=== PATIENT | female | born 1980 | race Caucasian/White ===

== ENCOUNTER 2018-03-31 20:32 | Emergency (ER) | payer OTHER, BC ==
--- NOTE | 2018-03-31 21:05 | PDOC ---
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 Pain and mild swelling at left 3rd MCP. Full ROM of fingers, but has pain when closing fist. S/p tubal ligation. Left hand xray To [facility] for further eval Discharge Disposition - Referrals Referrals: Myranda Kovacs MD [Primary Care Provider] - - Patient Instructions - Post Discharge Activity
[2018-03-31 21:09] VITALS: BP 123/78; PULSE 78; TEMP 98; BMI 23.3
--- NOTE | 2018-03-31 22:07 | PDOC ---
History of Present Illness - General Chief Complaint: Injury Stated Complaint: HAND INJURY /WORK RELATED Time Seen by Provider: 03/31/18 21:05 - History of Present Illness Initial Comments: 37-year-old female presents for evaluation of left third MCP J pain after applying suprapubic pressure in the delivery. 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 No prior problems with that area. No comorbidities. 03/31/18 22:04 Past History - Past Medical History Allergies/Adverse Reactions: Allergies Allergy/AdvReac Type Severity Reaction Status Date / Time No Known Drug Allergies Allergy Verified 03/31/18 21:06 Home Medications: Ambulatory Orders NK [No Known Home Medication] 03/31/18 Anemia: No Asthma: No Cancer: No Cardiac Disorders: Yes (MITRAL/TRICUSPID VALVE PROLAPSE WITH REGURGITATION) CVA: No COPD: No CHF: No Dementia: No Diabetes: No GI Disorders: Yes (DIVERTICULITIS) Disorders: No HTN: No Hypercholesterolemia: No Liver Disease: No Seizures: No Thyroid Disease: No - Surgical History Abdominal Surgery: Yes Appendectomy: No Cardiac Surgery: No Cholecystectomy: No Lung Surgery: No Neurologic Surgery: No Orthopedic Surgery: No - Reproductive History (#): 3 Para: 1 Tubal Ligation: Yes - Suicide/Smoking/Psychosocial Hx Smoking Status: Yes Smoking History: Former smoker Have you smoked in the past 12 months: No Number of Cigarettes Smoked Daily: 1 Information on smoking cessation initiated: No 'Breaking Loose' booklet given: 12/29/13 Hx Alcohol Use: No Drug/Substance Use Hx: No Substance Use Type: None Hx Substance Use Treatment: No Review of Systems - Review of Systems Musculoskeletal: Yes: Joint Pain All Other Systems: Reviewed and Negative *Physical Exam - Vital Signs Last Vital Signs Temp Pulse Resp BP Pulse Ox 98 F 78 16 123/78 03/31/18 21:07 03/31/18 21:07 03/31/18 21:07 03/31/18 21:07 - Physical Exam Comments: Left hand skin color and temperature are normal there is full range of motion. Tenderness about the third MCP joint of the left hand. Tenderness over the dorsum of the MCP joint. Her extensor tendon is working. FDS and FDP P function are preserved not hand. There are no gross sensorimotor deficits or malrotation deformity. Neurovascular intact 03/31/18 22:05 Moderate Sedation - Procedure Monitoring Vital Signs: Vital Signs Temp Pulse Resp BP Pulse Ox 98 F 78 16 123/78 03/31/18 21:07 03/31/18 21:07 03/31/18 21:07 03/31/18 21:07 Medical Decision Making - Medical Decision Making Left hand third MCP J sprain she can donis tape and follow-up with hand surgery for further evaluation and treatment options 03/31/18 22:05 *DC/Admit/Observation/Transfer Diagnosis at time of Disposition: Sprain of hand, left - Discharge Dispostion Disposition: HOME Condition at time of disposition: Stable Decision to Admit order: No - Referrals Referrals: Myranda Kovacs MD [Primary Care Provider] - Flash Brown MD [Staff Physician] - - Patient Instructions Printed Discharge Instructions: Finger Sprain Additional Instructions: Return to the emergency room if your symptoms worsen or go unresolved prior to follow-up with hand surgery. In the meantime he can donis tape the fingers for comfort. Motrin Tylenol for pain as needed. - Post Discharge Activity
== END 2018-03-31 22:09 | disposition home or self-care (01) ==
LOC: JERFT 20:32
DX: S63.8X2A Sprain of other part of left wrist and hand, initial encounter (principal); X50.1XXA Overexertion from prolonged static or awkward postures, initial encounter; Y93.F9 Activity, other caregiving; Y92.238 Other place in hospital as the place of occurrence of the external cause; Y99.0 Civilian activity done for income or pay; I08.1 Rheumatic disorders of both mitral and tricuspid valves; Z87.19 Personal history of other diseases of the digestive system; Z87.891 Personal history of nicotine dependence
CPT/HCPCS: 73130-TC-LR-FY; 99281-25

== ENCOUNTER 2019-08-19 17:50 | Emergency (ER) | payer BC, OTHER ==
[2019-08-19 17:55] VITALS: BP 158/68; PULSE 75; TEMP 98.4; BMI 29.0
--- NOTE | 2019-08-19 17:58 | PDOC ---
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 Patient states she was drawing umbilical cord blood when she accidentally stuck herself with a needle and was subsequently sent to ED per bodily fluid exposure protocol. Patient reports that the mother of the has a negative HIV status. Patient has no complaints at this time. No recent travel or sick contacts. PAST MEDICAL HISTORY: Denies past medical history FAMILY HISTORY: Denies SOCIAL HISTORY: Denies tobacco, alcohol, illicit drug use. SURGICAL HISTORY: Denies ALLERGIES: No known drug allergies REVIEW OF SYSTEMS General/Constitutional: Denies fever or chills. Denies weakness, weight change. HEENT: Denies change in vision. Denies ear pain or discharge. Denies sore throat. Cardiovascular: Denies chest pain or shortness of breath. Respiratory: Denies cough, wheezing, or hemoptysis. Gastrointestinal: Denies nausea, vomiting, diarrhea or constipation. Denies rectal bleeding. Genitourinary: Denies dysuria, frequency, or change in urination. Musculoskeletal: Denies joint or muscle swelling or pain. Denies neck or back pain. Skin and breasts: Denies rash or easy bruising. Neurologic: Denies headache, vertigo, loss of consciousness, or loss of sensation. Psychiatric: Denies depression or anxiety. Endocrine: Denies increased thirst. Denies abnormal weight change. Hematologic/Lymphatic: Denies anemia, easy bleeding, or history of blood clots. Allergic/Immunologic: Denies hives or skin allergy. Denies latex allergy. PHYSICAL EXAM General Appearance: Well-appearing, appropriately dressed. No apparent distress , no intoxication. HEENT: EOMI, PERRLA, normal ENT inspection, normal voice, TMs normal, pharynx normal. No conjunctival pallor. No photophobia, scleral icterus. Neck: Supple. Trachea midline. No tenderness, rigidity, carotid bruit, stridor , lymphadenopathy, or thyromegaly. Respiratory/Chest: Lungs CTAB. No shortness of breath, chest tenderness, respiratory distress, accessory muscle use. No crackles, rales, rhonchi, stridor , wheezing, dullness Cardiovascular: RRR. S1, S2. No JVD, murmur, bradycardia, tachycardia. Vascular Pulses: Dorsalis-Pedis (R): 2+, Dorsalis-Pedis (L): 2+ Gastrointestinal/Abdominal: Normal bowel sounds. Abdomen soft, non-distended. No tenderness or rebound tenderness. No organomegaly, pulsatile mass, guarding , hernia, hepatomegaly, splenomegaly. Lymphatic: No adenopathy, tenderness. Musculoskeletal/Extremities: Normal inspection. FROM of all extremities, normal capillary refill. Pelvis Stable. No CVA tenderness. No tenderness to extremities, pedal edema, swelling, erythema or deformity. Integumentary: Appropriate color, dry, warm. 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 Fully oriented, alert. Appropriate mood/affect. Motor strength 5/5. No appreciable EOM palsy, facial droop or sensory deficit. 08/19/19 18:20 08/19/19 18:40 Past History - Past Medical History Allergies/Adverse Reactions: Allergies Allergy/AdvReac Type Severity Reaction Status Date / Time No Known Drug Allergies Allergy Verified 08/19/19 17:56 Home Medications: Ambulatory Orders NK [No Known Home Medication] 03/31/18 Anemia: No Asthma: No Cancer: No Cardiac Disorders: Yes (MITRAL/TRICUSPID VALVE PROLAPSE WITH REGURGITATION) CVA: No COPD: No CHF: No Dementia: No Diabetes: No GI Disorders: Yes (DIVERTICULITIS) Disorders: No HTN: No Hypercholesterolemia: No Liver Disease: No Seizures: No Thyroid Disease: No - Surgical History Abdominal Surgery: Yes Appendectomy: No Cardiac Surgery: No Cholecystectomy: No Lung Surgery: No Neurologic Surgery: No Orthopedic Surgery: No - Reproductive History (#): 3 Para: 1 Tubal Ligation: Yes - Psycho Social/Smoking Cessation Hx Smoking Status: Yes Smoking History: Current every day smoker Have you smoked in the past 12 months: No Number of Cigarettes Smoked Daily: 4 Information on smoking cessation initiated: No 'Breaking Loose' booklet given: 12/29/13 Hx Alcohol Use: Yes (OCCASIONALLY) Drug/Substance Use Hx: No Substance Use Type: None Hx Substance Use Treatment: No *Physical Exam - Vital Signs Last Vital Signs Temp Pulse Resp BP Pulse Ox 98.4 F 75 16 158/68 100 08/19/19 17:51 08/19/19 17:51 08/19/19 17:51 08/19/19 17:51 08/19/19 17:51 Medical Decision Making - Medical Decision Making 08/19/19 18:23 38 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 labs Patient to f/u with occupational health. Discharge - Discharge Information Problems reviewed: Yes Clinical Impression/Diagnosis: Needlestick injury accident with exposure to body fluid Condition: Stable Disposition: HOME - Admission No - Follow up/Referral Referrals: Myranda Kovacs MD [Primary Care Provider] - - Patient Discharge Instructions Patient Printed Discharge Instructions: How to Handle Body Fluid Exposure -- Healthcare Worker - Post Discharge Activity Work/Back to School Note: Back to Work
[2019-08-19 18:56] LABS: BASO % 0.8 % (0-2.0); EOS % 2.1 % (0-4.5); HEMATOCRIT 37.1 % (32.4-45.2); HEMOGLOBIN 11.9 GM/dL (10.7-15.3); LYMPH % 25.5 % (8-40); MCH 22.4 pg (25.7-33.7); MCHC 31.9 g/dl (32.0-36.0); MEAN CELL VOLUME 70.1 fl (80-96); MEAN PLT VOLUME 8.5 fl (7.5-11.1); MONO % 6.7 % (3.8-10.2); NEUT % 64.9 % (42.8-82.8); PLATELET COUNT 236 K/MM3 (134-434); RDW 14.4 % (11.6-15.6); WHITE BLOOD COUNT 12.2 K/mm3 (4.0-10.0)
[2019-08-19 19:22] LABS: ALBUMIN 4.5 g/dl (3.4-5.0); BILIRUBIN,TOTAL 0.5 mg/dL (0.2-1); BLOOD UREA NITROGEN 18.1 mg/dL (7-18); CALCIUM 9.5 mg/dL (8.5-10.1); CREATININE 0.8 mg/dL (0.55-1.3); PHOSPHOROUS 3.8 mg/dL (2.5-4.9); POTASSIUM 3.8 mmol/L (3.5-5.1); TOT PROT 7.4 g/dl (6.4-8.2); URIC ACID 4.7 mg/dL (2.6-7.2)
== END 2019-08-19 18:45 | disposition home or self-care (01) ==
LOC: JER 17:50 → JERFT 17:50
DX: Z77.21 Contact with and (suspected) exposure to potentially hazardous body fluids (principal); W46.0XXA Contact with hypodermic needle, initial encounter; Y93.89 Activity, other specified; Y92.239 Unspecified place in hospital as the place of occurrence of the external cause; Y99.0 Civilian activity done for income or pay
CPT/HCPCS: 36415; 80053; 82465; 82977; 83615; 84100; 84478; 84550; 85025; 86317; 86704; 86706; 86803; 87340; 87389; 99282-25